=== PATIENT | male | born 1995 | race Hispanic/Latino ===

== ENCOUNTER 2017-01-05 22:15 | Emergency (ER) | payer SELFPAY ==
[~2017-01-05] VITALS: Ht 175.3 cm; Wt 143.0 kg
[~2017-01-05 22:15] MED LIST: ALBUTEROL0.083 % IN; ALBUTEROL2.5 MG/3 M IN; AMOXICILLIN/PO500 MG PO; CETIRIZINE10 MG PO; PREDNISO30ODT OR
[2017-01-05] MEDS ORDERED: CLARITIN10 M1 PO (22:51)
[2017-01-05] MEDS ORDERED: LORTAB 1010 MG PO (22:51)
[2017-01-05 23:21] VITALS: BP 154/70
== END 2017-01-05 23:27 | disposition home or self-care (01) | DRG 153 ==
LOC: ED 22:15
DX: H66.93 Otitis media, unspecified, bilateral (principal); H92.03 Otalgia, bilateral

== ENCOUNTER 2017-09-01 15:41 | Emergency (ER) | payer OTHER ==
[~2017-09-01] VITALS: Ht 175.3 cm; Wt 110.0 kg
[~2017-09-01 15:41] MED LIST changes: +CLARITIN10 M1 PO; +LORTAB 1010 MG PO
[2017-09-01] MEDS ORDERED: MOTRIN400 MG PO (17:06)
[2017-09-01 17:25] VITALS: BP 130/82
== END 2017-09-01 17:38 | disposition home or self-care (01) | DRG 556 ==
LOC: ED 15:41
DX: M79.641 Pain in right hand (principal); J45.909 Unspecified asthma, uncomplicated; V43.62XA Car passenger injured in collision with other type car in traffic accident, initial encounter

== ENCOUNTER 2017-09-02 16:54 | Emergency (ER) | payer OTHER ==
[~2017-09-02] VITALS: Ht 175.3 cm; Wt 109.1 kg
[~2017-09-02 16:54] MED LIST changes: +MOTRIN400 MG PO
[2017-09-02 17:40] VITALS: BP 130/76
== END 2017-09-02 17:40 | disposition home or self-care (01) | DRG 563 ==
LOC: ED 16:54
DX: S63.501A Unspecified sprain of right wrist, initial encounter (principal); X58.XXXA Exposure to other specified factors, initial encounter; J45.909 Unspecified asthma, uncomplicated

== ENCOUNTER 2018-02-24 12:03 | Emergency (ER) | payer BC ==
[~2018-02-24] VITALS: Ht 172.7 cm; Wt 127.3 kg
[2018-02-24 13:23] VITALS: BP 121/88
== END 2018-02-24 13:30 | disposition home or self-care (01) | DRG 103 ==
LOC: ED 12:03
DX: G43.909 Migraine, unspecified, not intractable, without status migrainosus (principal)

== ENCOUNTER 2018-07-01 13:44 | Emergency (ER) | payer BC ==
[~2018-07-01] VITALS: Ht 172.7 cm; Wt 136.1 kg
[2018-07-01] MEDS ORDERED: CIPROFLOXACN500 MG PO (16:12)
[2018-07-01] MEDS ORDERED: TORADOL PO (16:12)
[2018-07-01] MEDS ORDERED: CORTISPORIN OTI10 M2 AU (16:12)
[2018-07-01 16:19] VITALS: BP 146/79
== END 2018-07-01 16:30 | disposition home or self-care (01) | DRG 103 ==
LOC: ED 13:44
DX: R51 Headache (principal); G89.29 Other chronic pain; H92.03 Otalgia, bilateral; H66.93 Otitis media, unspecified, bilateral

== ENCOUNTER 2020-03-15 09:07 | Emergency (ER) | payer BC ==
[~2020-03-15] VITALS: Ht 172.7 cm; Wt 109.0 kg
[~2020-03-15 09:07] MED LIST changes: +CIPROFLOXACN500 MG PO; +CORTISPORIN OTI10 M2 AU; +TORADOL PO
[2020-03-15] MEDS ORDERED: AMOX/K CLAV875 M1 PO (10:42)
[2020-03-15] MEDS ORDERED: [UNRECOGNIZED DRUG - MIXTURE] PO (11:00)
[2020-03-15 11:01] VITALS: BP 139/67
== END 2020-03-15 11:29 | disposition home or self-care (01) | DRG 153 ==
LOC: ED 09:07
DX: J02.0 Streptococcal pharyngitis (principal); H66.93 Otitis media, unspecified, bilateral; J32.9 Chronic sinusitis, unspecified; R43.9 Unspecified disturbances of smell and taste; J45.909 Unspecified asthma, uncomplicated; Z20.822 Contact with and (suspected) exposure to COVID-19

== ENCOUNTER 2020-03-22 16:30 | Emergency (ER) | payer BC ==
[~2020-03-22] VITALS: Ht 172.7 cm; Wt 147.4 kg
[~2020-03-22 16:30] MED LIST changes: +AMOX/K CLAV875 M1 PO; +[UNRECOGNIZED DRUG - MIXTURE] PO
[2020-03-22 19:17] VITALS: BP 147/83
== END 2020-03-22 19:17 | disposition home or self-care (01) | DRG 93 ==
LOC: ED 16:30
DX: R43.9 Unspecified disturbances of smell and taste (principal); R09.81 Nasal congestion; R06.02 Shortness of breath; R51.9 Headache, unspecified; J45.909 Unspecified asthma, uncomplicated; Z20.822 Contact with and (suspected) exposure to COVID-19

== ENCOUNTER 2020-03-24 07:40 | Emergency (ER) | payer BC ==
[~2020-03-24] VITALS: Ht 172.7 cm; Wt 147.0 kg
[2020-03-24 09:20] VITALS: BP 138/89
== END 2020-03-24 09:20 | disposition home or self-care (01) | DRG 153 ==
LOC: ED 07:40
DX: J06.9 Acute upper respiratory infection, unspecified (principal); J45.909 Unspecified asthma, uncomplicated; Z20.822 Contact with and (suspected) exposure to COVID-19

== ENCOUNTER 2020-11-15 12:25 | Emergency (ER) | payer SELFPAY ==
[~2020-11-15] VITALS: Ht 172.7 cm; Wt 155.0 kg
[2020-11-15 13:07] LABS: IMMATURE GRANULOCYTES 0.3 % (0.0-5.0); MEAN CORPUSCULAR HGB 27.9 pG CALC (26.0-32.0); MEAN CORPUSCULAR HGB CONC 33.3 g/dL CAL (32.0-36.0); NEUT# 5.9 thou/uL (1.82-7.42); RED BLOOD COUNT 5.62 mill/uL (4.70-6.10); RED CELL DISTRI WIDTH 12.1 % (11.5-15.5)
[2020-11-15 13:22] LABS: ALBUMIN 4.2 g/dL (3.2-5.0); AMYLASE 95 u/l (30-110); ANION GAP 12 (6-22 (CALC)); BILIRUBIN, TOTAL 0.4 mg/dL (0.0-1.4); BUN 10 mg/dL (9-20); BUN/CREATININE RATIO 10 (12-20 (CALC)); CARBON DIOXIDE 25 mmol/l (22-30); CHLORIDE 104 mmol/l (95-108); GFR > 60 ML/MIN (>=60 (CALC)); GFR FOR AFR.AMER. > 60 ML/MIN (>=60 (CALC)); LIPASE 61 u/l (23-300); POTASSIUM 3.9 mmol/l (3.5-5.1); SGOT/AST 46 u/l (17-59); SODIUM 138 mmol/l (137-146); TOTAL PROTEIN 7.4 g/dL (6.3-8.2)
[2020-11-15 13:23] LABS: ALKALINE PHOSPHATASE 65 u/l (38-126)
[2020-11-15 13:30] LABS: HEMATOCRIT 47.1 % (39.0-50.0); HEMOGLOBIN 15.7 g/dl (14.0-18.0); MEAN CELL VOLUME 83.8 fL CALC (80.0-100.0)
[2020-11-15 13:34] LABS: MYOGLOBIN 31 ng/mL (0 - 121)
[2020-11-15 17:22] VITALS: BP 145/90
== END 2020-11-15 17:30 | disposition home or self-care (01) | DRG 204 ==
LOC: ED 12:25
PROVIDERS: Emergency Medicine
DX: R06.00 Dyspnea, unspecified (principal); R07.9 Chest pain, unspecified; J45.909 Unspecified asthma, uncomplicated
CPT/HCPCS: Q9967

== ENCOUNTER 2021-07-09 10:06 | Emergency (ER) | payer SELFPAY ==
[~2021-07-09] VITALS: Ht 172.7 cm; Wt 131.0 kg
[2021-07-09 10:23] VITALS: BP 101/81
[2021-07-09 10:32] VITALS: BP 144/97
[2021-07-09 11:12] LABS: HEMATOCRIT 48.9 % (39.0-50.0); HEMOGLOBIN 16.5 g/dl (14.0-18.0); IMMATURE GRANULOCYTES 0.2 % (0.0-5.0); MEAN CELL VOLUME 84.6 fL CALC (80.0-100.0); MEAN CORPUSCULAR HGB 28.5 pG CALC (26.0-32.0); MEAN CORPUSCULAR HGB CONC 33.7 g/dL CAL (32.0-36.0); NEUT# 4.57 thou/uL (1.82-7.42); RED BLOOD COUNT 5.78 mill/uL (4.70-6.10); RED CELL DISTRI WIDTH 12.1 % (11.5-15.5)
[2021-07-09 11:47] LABS: ALBUMIN 4.3 g/dL (3.2-5.0); ALKALINE PHOSPHATASE 65 u/l (38-126); ANION GAP 15 (6-22 (CALC)); BILIRUBIN, TOTAL 0.4 mg/dL (0.0-1.4); BUN 7 mg/dL (9-20); BUN/CREATININE RATIO 7 (12-20 (CALC)); CARBON DIOXIDE 24 mmol/l (22-30); CHLORIDE 105 mmol/l (95-108); GFR > 60 ML/MIN (>=60 (CALC)); GFR FOR AFR.AMER. > 60 ML/MIN (>=60 (CALC)); POTASSIUM 3.5 mmol/l (3.5-5.1); SGOT/AST 35 u/l (17-59); SODIUM 141 mmol/l (137-146); TOTAL PROTEIN 7.5 g/dL (6.3-8.2)
[2021-07-09 11:58] LABS: MYOGLOBIN 33 ng/mL (0 - 121)
[2021-07-09 12:15] VITALS: BP 126/81
[2021-07-09 16:25] VITALS: BP 121/85
[2021-07-09 16:30] VITALS: BP 118/67
[2021-07-10] MEDS ORDERED: VENTOLIN HFA IN (22:41)
[2021-07-10] MEDS ORDERED: MEDDOSEPAK PO (22:41)
== END 2021-07-09 12:42 | disposition home or self-care (01) | DRG 313 ==
LOC: ED 10:06
PROVIDERS: Emergency Medicine
DX: R07.89 Other chest pain (principal); F19.10 Other psychoactive substance abuse, uncomplicated; J45.909 Unspecified asthma, uncomplicated

== ENCOUNTER 2021-07-10 20:59 | Emergency (ER) | payer SELFPAY ==
[~2021-07-10] VITALS: Ht 172.7 cm; Wt 132.0 kg
[2021-07-10 21:08] VITALS: BP 112/68
[2021-07-10 21:30] VITALS: BP 106/85
[2021-07-10 21:33] LABS: HEMOGLOBIN 14.8 g/dl (14.0-18.0); IMMATURE GRANULOCYTES 0.3 % (0.0-5.0); MEAN CELL VOLUME 84.5 fL CALC (80.0-100.0); MEAN CORPUSCULAR HGB 29.1 pG CALC (26.0-32.0); MEAN CORPUSCULAR HGB CONC 34.4 g/dL CAL (32.0-36.0); NEUT# 6.99 thou/uL (1.82-7.42); RED BLOOD COUNT 5.09 mill/uL (4.70-6.10); RED CELL DISTRI WIDTH 12.3 % (11.5-15.5)
[2021-07-10 21:55] LABS: URINE BLOOD DIPSTICK NEGATIVE (NEGATIVE); URINE COLOR YELLOW; URINE GLUCOSE - DIPSTICK NEGATIVE (NEGATIVE); URINE KETONE 15 mg/dL (NEGATIVE); URINE LEUK ESTERASE NEGATIVE (NEGATIVE); URINE PROTEIN - DIPSTICK NEGATIVE (NEG-TRACE); URINE SPECIFIC GRAVITY >=1.030; URINE UROBILINOGEN - DIPSTICK 0.2 E.U./dL (0.2)
[2021-07-10 21:56] LABS: URINE BILIRUBIN - DIPSTICK SMALL (NEGATIVE); URINE NITRITE - DIPSTICK NEGATIVE (Negative)
[2021-07-10 22:15] LABS: ALBUMIN 3.9 g/dL (3.2-5.0); ALKALINE PHOSPHATASE 47 u/l (38-126); ANION GAP 12 (6-22 (CALC)); BILIRUBIN, TOTAL 0.3 mg/dL (0.0-1.4); BUN 10 mg/dL (9-20); BUN/CREATININE RATIO 11 (12-20 (CALC)); CARBON DIOXIDE 22 mmol/l (22-30); CHLORIDE 107 mmol/l (95-108); ETHYL ALCOHOL 0 mg/dl (0-30); GFR > 60 ML/MIN (>=60 (CALC)); GFR FOR AFR.AMER. > 60 ML/MIN (>=60 (CALC)); LIPASE 64 u/l (23-300); POTASSIUM 3.8 mmol/l (3.5-5.1); SGOT/AST 33 u/l (17-59); SODIUM 137 mmol/l (137-146); TOTAL PROTEIN 6.4 g/dL (6.3-8.2)
[2021-07-10] MEDS ORDERED: MEDDOSEPAK PO (22:41)
[2021-07-10] MEDS ORDERED: VENTOLIN HFA IN (22:41)
[2021-07-10 22:50] VITALS: BP 106/85
== END 2021-07-10 22:50 | disposition home or self-care (01) | DRG 203 ==
LOC: ED 20:59
DX: J45.901 Unspecified asthma with (acute) exacerbation (principal); E66.9 Obesity, unspecified; Z20.822 Contact with and (suspected) exposure to COVID-19

== ENCOUNTER 2021-08-10 10:51 | Emergency (ER) | payer SELFPAY ==
[~2021-08-10] VITALS: Ht 172.7 cm; Wt 118.0 kg
[~2021-08-10 10:51] MED LIST changes: +MEDDOSEPAK PO; +VENTOLIN HFA IN
[2021-08-10 11:08] VITALS: BP 124/73
[2021-08-10 11:16] VITALS: BP 134/69
[2021-08-10 11:31] VITALS: BP 140/78
[2021-08-10 11:34] LABS: HEMATOCRIT 46.1 % (39.0-50.0); HEMOGLOBIN 15.3 g/dl (14.0-18.0); IMMATURE GRANULOCYTES 0.1 % (0.0-5.0); MEAN CELL VOLUME 85.5 fL CALC (80.0-100.0); MEAN CORPUSCULAR HGB 28.4 pG CALC (26.0-32.0); MEAN CORPUSCULAR HGB CONC 33.2 g/dL CAL (32.0-36.0); NEUT# 4.44 thou/uL (1.82-7.42); RED BLOOD COUNT 5.39 mill/uL (4.70-6.10)
[2021-08-10 11:46] LABS: URINE BLOOD DIPSTICK NEGATIVE (NEGATIVE); URINE COLOR YELLOW; URINE GLUCOSE - DIPSTICK NEGATIVE (NEGATIVE); URINE KETONE NEGATIVE (NEGATIVE); URINE LEUK ESTERASE NEGATIVE (NEGATIVE); URINE PROTEIN - DIPSTICK TRACE mg/dL (NEG-TRACE); URINE SPECIFIC GRAVITY >=1.030; URINE UROBILINOGEN - DIPSTICK 0.2 E.U./dL (0.2)
[2021-08-10 11:51] LABS: ALBUMIN 3.9 g/dL (3.2-5.0); ALKALINE PHOSPHATASE 60 u/l (38-126); ANION GAP 12 (6-22 (CALC)); BILIRUBIN, TOTAL 0.4 mg/dL (0.0-1.4); BUN 10 mg/dL (9-20); BUN/CREATININE RATIO 11 (12-20 (CALC)); CARBON DIOXIDE 22 mmol/l (22-30); CHLORIDE 108 mmol/l (95-108); CREATININE 0.9 mg/dL (0.7-1.3); GFR FOR AFR.AMER. > 60 ML/MIN (>=60 (CALC)); GFR OTHER RACES > 60 ML/MIN (>=60 (CALC)); LIPASE 139 u/l (23-300); POTASSIUM 3.7 mmol/l (3.5-5.1); SGOT/AST 31 u/l (17-59); SODIUM 138 mmol/l (137-146); TOTAL PROTEIN 6.9 g/dL (6.3-8.2)
[2021-08-10 11:53] LABS: URINE BILIRUBIN - DIPSTICK NEGATIVE (NEGATIVE); URINE NITRITE - DIPSTICK NEGATIVE (Negative)
[2021-08-10] MEDS ORDERED: PROTONIX20 M1 PO (12:19)
[2021-08-10 12:26] VITALS: BP 134/69
== END 2021-08-10 13:00 | disposition home or self-care (01) | DRG 392 ==
LOC: ED 10:51
PROVIDERS: Family Medicine
DX: R10.11 Right upper quadrant pain (principal); J45.909 Unspecified asthma, uncomplicated
CPT/HCPCS: Q9967

== ENCOUNTER 2022-01-08 18:48 | Emergency (ER) | payer SELFPAY ==
[~2022-01-08] VITALS: Ht 172.7 cm; Wt 110.0 kg
[~2022-01-08 18:48] MED LIST changes: +PROTONIX20 M1 PO
[2022-01-08 19:10] VITALS: BP 145/90
[2022-01-08 19:16] VITALS: BP 121/94
[2022-01-08 19:31] VITALS: BP 113/86
[2022-01-08 19:39] LABS: HEMATOCRIT 46.2 % (39.0-50.0); HEMOGLOBIN 15.9 g/dl (14.0-18.0); IMMATURE GRANULOCYTES 0.3 % (0.0-5.0); MEAN CELL VOLUME 82.8 fL CALC (80.0-100.0); MEAN CORPUSCULAR HGB 28.5 pG CALC (26.0-32.0); MEAN CORPUSCULAR HGB CONC 34.4 g/dL CAL (32.0-36.0); NEUT# 5.81 thou/uL (1.82-7.42); RED BLOOD COUNT 5.58 mill/uL (4.70-6.10); RED CELL DISTRI WIDTH 12.2 % (11.5-15.5)
[2022-01-08 19:40] LABS: URINE BLOOD DIPSTICK NEGATIVE (NEGATIVE); URINE COLOR YELLOW; URINE GLUCOSE - DIPSTICK NEGATIVE (NEGATIVE); URINE KETONE TRACE mg/dL (NEGATIVE); URINE LEUK ESTERASE NEGATIVE (NEGATIVE); URINE PROTEIN - DIPSTICK 30 mg/dL (NEG-TRACE); URINE SPECIFIC GRAVITY >=1.030; URINE UROBILINOGEN - DIPSTICK 0.2 E.U./dL (0.2)
[2022-01-08 19:43] LABS: URINE BILIRUBIN - DIPSTICK SMALL (NEGATIVE); URINE NITRITE - DIPSTICK NEGATIVE (Negative)
[2022-01-08 19:47] VITALS: BP 120/88
[2022-01-08 19:49] LABS: ALBUMIN 4.1 g/dL (3.2-5.0); ALKALINE PHOSPHATASE 57 u/l (38-126); ANION GAP 11 (6-22 (CALC)); BILIRUBIN, TOTAL 0.3 mg/dL (0.0-1.4); BUN 12 mg/dL (9-20); BUN/CREATININE RATIO 12 (12-20 (CALC)); CARBON DIOXIDE 24 mmol/l (22-30); CHLORIDE 106 mmol/l (95-108); GFR FOR AFR.AMER. > 60 ML/MIN (>=60 (CALC)); GFR OTHER RACES > 60 ML/MIN (>=60 (CALC)); LIPASE 41 u/l (23-300); POTASSIUM 3.9 mmol/l (3.5-5.1); SGOT/AST 37 u/l (17-59); SODIUM 138 mmol/l (137-146); URINE RBC 0-2 RBC/hpf (0-5); URINE SQUAMOUS EPITHELIAL CELL RARE EPI/hpf (0-FEW); URINE WBC 0-2 WBC/hpf (0-5)
[2022-01-08 20:16] VITALS: BP 114/74
[2022-01-08] MEDS ORDERED: NAPROXEN500 MG PO (20:38)
[2022-01-08] MEDS ORDERED: METHOCARBAMOL500 MG PO (20:38)
[2022-01-08 20:45] VITALS: BP 114/74
== END 2022-01-08 21:00 | disposition home or self-care (01) | DRG 204 ==
LOC: ED 18:48
PROVIDERS: Nurse Practitioner
DX: R07.81 Pleurodynia (principal); J45.909 Unspecified asthma, uncomplicated

== ENCOUNTER 2022-06-22 01:54 | Emergency (ER) | payer SELFPAY ==
[~2022-06-22] VITALS: Ht 172.7 cm; Wt 115.0 kg
[~2022-06-22 01:54] MED LIST changes: +METHOCARBAMOL500 MG PO; +NAPROXEN500 MG PO
[2022-06-22 02:01] VITALS: BP 147/92
[2022-06-22 02:16] VITALS: BP 132/87
[2022-06-22 02:25] LABS: BASO% 0.5 % (0-3); EOS% 4.9 % (0-8); HEMATOCRIT 48.3 % (39.0-50.0); IMMATURE GRANULOCYTES 0.2 % (0.0-5.0); LYMPH% 34.8 % (15-41); MEAN CELL VOLUME 82.6 fL CALC (80.0-100.0); MEAN CORPUSCULAR HGB 27.4 pG CALC (26.0-32.0); MEAN CORPUSCULAR HGB CONC 33.1 g/dL CAL (32.0-36.0); MONO% 8.8 % (2-13); NEUT# 5.7 thou/uL (1.82-7.42); NEUT% 50.8 % (42-76); RED BLOOD COUNT 5.85 mill/uL (4.70-6.10); RED CELL DISTRI WIDTH 12.4 % (11.5-15.5)
[2022-06-22 02:36] LABS: ALBUMIN 4.1 g/dL (3.2-5.0); ALKALINE PHOSPHATASE 46 u/l (38-126); ANION GAP 11 (6-22 (CALC)); BILIRUBIN, TOTAL 0.2 mg/dL (0.2-1.3); BUN 14 mg/dL (9-20); BUN/CREATININE RATIO 13 (12-20 (CALC)); CARBON DIOXIDE 24 mmol/l (22-30); CHLORIDE 107 mmol/l (95-108); GFR FOR AFR.AMER. > 60 ML/MIN (>=60 (CALC)); GFR OTHER RACES > 60 ML/MIN (>=60 (CALC)); SGOT/AST 42 u/l (17-59); SODIUM 139 mmol/l (137-146); TOTAL PROTEIN 6.9 g/dL (6.3-8.2)
[2022-06-22 03:21] LABS: URINE BILIRUBIN - DIPSTICK NEGATIVE (NEGATIVE); URINE BLOOD DIPSTICK NEGATIVE (NEGATIVE); URINE COLOR YELLOW; URINE GLUCOSE - DIPSTICK NEGATIVE (NEGATIVE); URINE KETONE NEGATIVE (NEGATIVE); URINE LEUK ESTERASE NEGATIVE (NEGATIVE); URINE PROTEIN - DIPSTICK NEGATIVE (NEG-TRACE); URINE SPECIFIC GRAVITY >=1.030; URINE UROBILINOGEN - DIPSTICK 0.2 E.U./dL (0.2)
[2022-06-22 03:24] LABS: URINE NITRITE - DIPSTICK NEGATIVE (Negative)
[2022-06-22 03:39] VITALS: BP 132/87
== END 2022-06-22 03:43 | disposition left against medical advice (07) | DRG 313 ==
LOC: ED 01:54
PROVIDERS: Emergency Medicine
DX: R07.9 Chest pain, unspecified (principal); F19.10 Other psychoactive substance abuse, uncomplicated; H53.8 Other visual disturbances; R20.0 Anesthesia of skin; J45.909 Unspecified asthma, uncomplicated; Z53.29 Procedure and treatment not carried out because of patient's decision for other reasons; Z20.822 Contact with and (suspected) exposure to COVID-19

== ENCOUNTER 2022-08-21 20:06 | Emergency (ER) | payer SELFPAY ==
[~2022-08-21] VITALS: Ht 172.7 cm; Wt 125.0 kg
[2022-08-21 20:58] LABS: BASO% 0.3 % (0-3); EOS% 1.9 % (0-8); HEMATOCRIT 47.3 % (39.0-50.0); HEMOGLOBIN 15.7 g/dl (14.0-18.0); IMMATURE GRANULOCYTES 0.2 % (0.0-5.0); LYMPH% 30.1 % (15-41); MEAN CELL VOLUME 82.3 fL CALC (80.0-100.0); MEAN CORPUSCULAR HGB 27.3 pG CALC (26.0-32.0); MEAN CORPUSCULAR HGB CONC 33.2 g/dL CAL (32.0-36.0); NEUT# 6.32 thou/uL (1.82-7.42); NEUT% 61.5 % (42-76); RED BLOOD COUNT 5.75 mill/uL (4.70-6.10); RED CELL DISTRI WIDTH 12.3 % (11.5-15.5); URINE BILIRUBIN - DIPSTICK NEGATIVE (NEGATIVE); URINE BLOOD DIPSTICK NEGATIVE (NEGATIVE); URINE COLOR YELLOW; URINE GLUCOSE - DIPSTICK NEGATIVE (NEGATIVE); URINE KETONE NEGATIVE (NEGATIVE); URINE LEUK ESTERASE NEGATIVE (NEGATIVE); URINE PH 6.5 (4.5-8.0); URINE PROTEIN - DIPSTICK NEGATIVE (NEG-TRACE); URINE SPECIFIC GRAVITY 1.015; URINE UROBILINOGEN - DIPSTICK 0.2 E.U./dL (0.2)
[2022-08-21 21:00] LABS: URINE NITRITE - DIPSTICK NEGATIVE (Negative)
[2022-08-21 21:09] LABS: ALBUMIN 4.2 g/dL (3.2-5.0); ALKALINE PHOSPHATASE 48 u/l (38-126); ANION GAP 11 (6-22 (CALC)); BUN 11 mg/dL (9-20); BUN/CREATININE RATIO 13 (12-20 (CALC)); CARBON DIOXIDE 24 mmol/l (22-30); CHLORIDE 105 mmol/l (95-108); CREATININE 0.9 mg/dL (0.7-1.3); ETHYL ALCOHOL 0 mg/dl (0-30); GFR FOR AFR.AMER. > 60 ML/MIN (>=60 (CALC)); GFR OTHER RACES > 60 ML/MIN (>=60 (CALC)); POTASSIUM 3.8 mmol/l (3.5-5.1); SGOT/AST 35 u/l (17-59); SODIUM 137 mmol/l (137-146); TOTAL PROTEIN 7.3 g/dL (6.3-8.2)
[2022-08-21 21:26] LABS: BILIRUBIN, TOTAL 0.3 mg/dL (0.2-1.3)
[2022-08-21 22:14] VITALS: BP 114/84
== END 2022-08-21 22:19 | disposition home or self-care (01) | DRG 897 ==
LOC: ED 20:06
PROVIDERS: Family Medicine
DX: F12.10 Cannabis abuse, uncomplicated (principal); R00.2 Palpitations; J45.909 Unspecified asthma, uncomplicated; F17.200 Nicotine dependence, unspecified, uncomplicated